=== PATIENT | male | born 2000 | race Caucasian/White ===

== ENCOUNTER 2025-01-26 06:17 | Day surgery (SDC) | payer OTHER ==
[~2025-01-26] VITALS: Ht 175.3 cm; Wt 88.4 kg
[2025-01-26] MEDS ORDERED: dexAMETHasone 4 MG/ML 1 ML VIAL As Ordered ONE (07:03)
[2025-01-26] MEDS ORDERED: LIDOCAINE 2% 100 MG/5 ML SDV (FOR ANES.) As Ordered ONE (07:03)
[2025-01-26] MEDS ORDERED: ACETAMINOPHEN 1000MG/100ML IV BAG As Ordered ONE (07:13)
[2025-01-26] MEDS ORDERED: TRANEXAMIC ACID 100 MG/ML 10ML VIAL As Ordered ONE (07:15)
[2025-01-26] MEDS: LR 1,000 ML IV SCH (07:15)
[2025-01-26] MEDS: MIDAZOLAM INJ 2 MG/2 ML VIAL IV PRN (07:33)
[2025-01-26] MEDS: LIDOCAINE 1% SDV 5 ML VIAL PN ONE (07:44)
[2025-01-26] MEDS: dexAMETHasone 10 MG/1 ML VIAL PRES.FREE PN ONE (07:44)
[2025-01-26] MEDS: ceFAZolin SOD 2 GM IV ONCE IV ONE (08:10)
[2025-01-26] MEDS: TRANEXAMIC ACID 100 MG/ML 10ML VIAL IV ONE (08:15)
[2025-01-26] MEDS ORDERED: CALCIUM CHLORIDE 10% 1 GM/10 ML SYR As Ordered ONE (08:25)
[2025-01-26] MEDS ORDERED: GLYCOPYRROLATE INJ 0.2 MG/ML 2 ML VIAL As Ordered ONE (08:31)
[2025-01-26] MEDS ORDERED: ONDANSETRON 4MG/2ML VIAL As Ordered ONE (08:32)
[2025-01-26] MEDS ORDERED: KETOROLAC 30 MG/ML 1 ML VIAL As Ordered ONE (08:32)
[2025-01-26] MEDS ORDERED: ONDANSETRON 4MG/2ML VIAL IV PRN (08:55)
[2025-01-26] MEDS ORDERED: LR 1,000 ML IV SCH (08:55)
[2025-01-26 10:55] VITALS: BP 141/79; TEMP 97.1; O2SAT 97
== END 2025-01-26 11:00 | disposition home or self-care (01) ==
LOC: M SDC 06:17
PROVIDERS: ATTEND Orthopaedic Surgery
DX: M25.372 Other instability, left ankle (principal); Z88.8 Allergy status to other drugs, medicaments and biological substances
CPT/HCPCS: 27698; 76000; C1713; J0131; J0618; J0665; J0688; J1100; J1596; J1885; J2250; J2405; J3010